=== PATIENT | female | born 2000 | race African-American/Black ===

== ENCOUNTER 2020-03-23 17:22 | Emergency (ER) | payer OTHER ==
[2020-03-23 17:40] VITALS: TEMP 98.6; BMI 25.0
[2020-03-23 20:49] LABS: BASO % 0.4 % (0-2.0); EOS % 0.7 % (0-4.5); HEMATOCRIT 36.4 % (32.4-45.2); HEMOGLOBIN 12.4 GM/dL (10.7-15.3); LYMPH % 39.3 % (8-40); MCH 31.6 pg (25.7-33.7); MCHC 34.2 g/dl (32.0-36.0); MEAN CELL VOLUME 92.3 fl (80-96); MEAN PLT VOLUME 9.4 fl (7.5-11.1); MONO % 7.2 % (3.8-10.2); NEUT % 52.4 % (42.8-82.8); PLATELET COUNT 209 K/MM3 (134-434); RBC 3.94 M/mm3 (3.60-5.2); RDW 12.7 % (11.6-15.6); WHITE BLOOD COUNT 5.5 K/mm3 (4.0-10.0)
[2020-03-23 21:09] LABS: POTASSIUM 3.7 mmol/L (3.5-5.1)
[2020-03-23 21:11] LABS: CALCIUM 8.6 mg/dL (8.5-10.1)
[2020-03-23 21:12] LABS: ALBUMIN 3.9 g/dl (3.4-5.0); BLOOD UREA NITROGEN 11.6 mg/dL (7-18)
[2020-03-23 21:15] LABS: CREATININE 0.5 mg/dL (0.55-1.3)
[2020-03-23 21:16] LABS: BILIRUBIN,TOTAL 0.6 mg/dL (0.2-1); TOT PROT 7.2 g/dl (6.4-8.2)
[2020-03-23 22:08] LABS: HIV INTERPRETATION NEGATIVE (NEGATIVE)
[2020-03-23 22:12] LABS: EPI CELLS 8 /uL (0-25.1); HYALINE CASTS 13 /uL (0-3.1); URINE APPEARANCE CLEAR; URINE BACTERIA >9,000 /uL (0-1359); URINE BILIRUBIN NEGATIVE (NEGATIVE); URINE COLOR YELLOW; URINE GLUCOSE (UA) NEGATIVE (NEGATIVE); URINE KETONE TRACE (NEGATIVE); URINE LEUK ESTERASE 1+ (NEGATIVE); URINE NITRITE NEGATIVE (NEGATIVE); URINE PROTEIN NEGATIVE (NEGATIVE); URINE RBC 3 /uL (0-23.9); URINE WBC 151 /uL (0-25.8)
[2020-03-23] MEDS ORDERED: CEPHALEXIN MONOHYDRATE 500 MG CAPSULE (UD) PO ONE (22:21)
[2020-03-23] MEDS ORDERED: CEPHALEXIN MONOHYDRATE 500 MG CAPSULE (UD) ONE (22:34)
[2020-03-23 22:47] VITALS: BP 122/72; PULSE 79
[2020-03-26 07:37] LABS: SYPHILIS W/ RPR CONF NON-REACTIVE (NONREACTIVE)
== END 2020-03-23 22:48 | disposition home or self-care (01) ==
LOC: JER 17:22
DX: N30.00 Acute cystitis without hematuria (principal); Z32.01 Encounter for pregnancy test, result positive
CPT/HCPCS: 36415; 76817-TC; 80053; 81003; 83690; 84702; 85025; 86780; 87086; 87186; 87389; 87491; 87591; 87661; 99283-25

== ENCOUNTER 2020-04-07 06:08 | Emergency (ER) | payer OTHER ==
[2020-04-07 06:25] VITALS: TEMP 98.7; BMI 26.5
[2020-04-07] MEDS ORDERED: ONDANSETRON 4 MG/2 ML VIAL IVPUSH ONE (07:30)
[2020-04-07] MEDS ORDERED: SODIUM CHLORIDE 0.9% 500 ML INFUS.BAG IV ONE (07:30)
[2020-04-07 07:35] LABS: BASO % 0.4 % (0-2.0); EOS % 0.4 % (0-4.5); HEMATOCRIT 37.7 % (32.4-45.2); HEMOGLOBIN 12.8 GM/dL (10.7-15.3); LYMPH % 24.4 % (8-40); MCH 31.4 pg (25.7-33.7); MEAN CELL VOLUME 92.4 fl (80-96); MEAN PLT VOLUME 9.2 fl (7.5-11.1); MONO % 7.2 % (3.8-10.2); NEUT % 67.6 % (42.8-82.8); PLATELET COUNT 206 K/MM3 (134-434); RBC 4.08 M/mm3 (3.60-5.2); RDW 12.7 % (11.6-15.6); WHITE BLOOD COUNT 7.1 K/mm3 (4.0-10.0)
[2020-04-07] MEDS ORDERED: ONDANSETRON 4 MG/2 ML VIAL ONE (07:36)
[2020-04-07 07:48] LABS: POTASSIUM 4.2 mmol/L (3.5-5.1)
[2020-04-07 07:52] LABS: BLOOD UREA NITROGEN 8.7 mg/dL (7-18); CALCIUM 8.8 mg/dL (8.5-10.1)
[2020-04-07 07:53] LABS: ALBUMIN 3.7 g/dl (3.4-5.0)
[2020-04-07] MEDS ORDERED: SODIUM CHLORIDE 1,000 ML IV STA (07:53)
[2020-04-07 07:56] LABS: CREATININE 0.5 mg/dL (0.55-1.3)
[2020-04-07 07:57] LABS: BILIRUBIN,TOTAL 1.3 mg/dL (0.2-1)
[2020-04-07 07:58] LABS: TOT PROT 6.8 g/dl (6.4-8.2)
[2020-04-07 08:28] LABS: PH,URINE 8.5 (5.0-8.0); URINE APPEARANCE CLOUDY; URINE BILIRUBIN NEGATIVE (NEGATIVE); URINE COLOR YELLOW; URINE GLUCOSE (UA) NEGATIVE (NEGATIVE); URINE KETONE NEGATIVE (NEGATIVE); URINE LEUK ESTERASE NEGATIVE (NEGATIVE); URINE NITRITE NEGATIVE (NEGATIVE); URINE PROTEIN NEGATIVE (NEGATIVE)
[2020-04-07 10:24] VITALS: BP 108/60; PULSE 79
== END 2020-04-07 10:24 | disposition home or self-care (01) ==
LOC: JER 06:08
PROC: 3E033GC Introduction of Other Therapeutic Substance into Peripheral Vein, Percutaneous Approach (ICD-10-PCS; principal; 2020-04-07)
PROC: 3E0337Z Introduction of Electrolytic and Water Balance Substance into Peripheral Vein, Percutaneous Approach (ICD-10-PCS; 2020-04-07)
DX: O21.1 Hyperemesis gravidarum with metabolic disturbance (principal); Z3A.01 Less than 8 weeks gestation of pregnancy
CPT/HCPCS: 36415; 76817-TC; 80053; 81003; 84702; 85025; 87086; 99284-25

== ENCOUNTER 2020-05-02 11:30 | Emergency (ER) | payer OTHER ==
[2020-05-02 11:51] VITALS: BP 101/54; PULSE 92; TEMP 97.6; BMI 23.4
[2020-05-02 12:52] LABS: BASO % 0.4 % (0-2.0); EOS % 0.8 % (0-4.5); HEMATOCRIT 36.8 % (32.4-45.2); HEMOGLOBIN 12.5 GM/dL (10.7-15.3); LYMPH % 29.4 % (8-40); MCH 31.8 pg (25.7-33.7); MCHC 33.9 g/dl (32.0-36.0); MEAN CELL VOLUME 93.8 fl (80-96); MEAN PLT VOLUME 8.8 fl (7.5-11.1); MONO % 7.6 % (3.8-10.2); NEUT % 61.8 % (42.8-82.8); PLATELET COUNT 205 K/MM3 (134-434); RBC 3.93 M/mm3 (3.60-5.2); RDW 13.2 % (11.6-15.6); WHITE BLOOD COUNT 5.1 K/mm3 (4.0-10.0)
[2020-05-02 13:07] LABS: EPI CELLS 26 /uL (0-25.1); HYALINE CASTS 0 /uL (0-3.1); PH,URINE 7.5 (5.0-8.0); URINE APPEARANCE TURBID; URINE BACTERIA 632 /uL (0-1359); URINE BILIRUBIN NEGATIVE (NEGATIVE); URINE COLOR YELLOW; URINE GLUCOSE (UA) NEGATIVE (NEGATIVE); URINE KETONE NEGATIVE (NEGATIVE); URINE LEUK ESTERASE NEGATIVE (NEGATIVE); URINE NITRITE NEGATIVE (NEGATIVE); URINE PROTEIN NEGATIVE (NEGATIVE); URINE RBC 3 /uL (0-23.9); URINE WBC 2 /uL (0-25.8)
[2020-05-02 13:31] LABS: POTASSIUM 4.3 mmol/L (3.5-5.1)
[2020-05-02 13:33] LABS: ALBUMIN 3.7 g/dl (3.4-5.0); BLOOD UREA NITROGEN 9.8 mg/dL (7-18); CALCIUM 9.2 mg/dL (8.5-10.1)
[2020-05-02 13:36] LABS: CREATININE 0.5 mg/dL (0.55-1.3)
[2020-05-02 13:38] LABS: BILIRUBIN,TOTAL 0.3 mg/dL (0.2-1); TOT PROT 6.9 g/dl (6.4-8.2)
== END 2020-05-02 15:10 | disposition home or self-care (01) ==
LOC: JER 11:30
DX: O02.1 Missed abortion (principal); Z3A.09 9 weeks gestation of pregnancy
CPT/HCPCS: 36415; 76817-TC; 80053; 81003; 84702; 85025; 86850; 86900; 86901; 87086; 99284-25

== ENCOUNTER 2020-05-08 23:07 | Emergency (ER) | payer OTHER ==
[2020-05-08 23:20] VITALS: TEMP 98.3; BMI 23.8
[2020-05-08] MEDS ORDERED: ONDANSETRON 4 MG/2 ML VIAL IVPUSH ONE (23:51)
[2020-05-08] MEDS ORDERED: SODIUM CHLORIDE 0.9% 500 ML INFUS.BAG IV ONE (23:51)
[2020-05-09] MEDS ORDERED: ONDANSETRON *ODT* 4 MG TABLET ONE (00:16)
[2020-05-09] MEDS ORDERED: ONDANSETRON *ODT* 4 MG TABLET SL ONE (00:17)
[2020-05-09] MEDS ORDERED: KETOROLAC TROMETHAMINE 30 MG/1 ML VIAL ONE (00:17)
[2020-05-09] MEDS ORDERED: KETOROLAC TROMETHAMINE 30 MG/1 ML VIAL IM ONE (00:17)
[2020-05-09 01:27] LABS: POTASSIUM 3.8 mmol/L (3.5-5.1)
[2020-05-09 01:32] LABS: CREATININE 0.7 mg/dL (0.55-1.3)
[2020-05-09 04:44] LABS: HEMATOCRIT 33.6 % (32.4-45.2); HEMOGLOBIN 11.4 GM/dL (10.7-15.3); MCH 31.9 pg (25.7-33.7); MEAN CELL VOLUME 93.9 fl (80-96); MEAN PLT VOLUME 9.3 fl (7.5-11.1); PLATELET COUNT 202 K/MM3 (134-434); RBC 3.57 M/mm3 (3.60-5.2); RDW 13.1 % (11.6-15.6); WHITE BLOOD COUNT 16.3 K/mm3 (4.0-10.0)
[2020-05-09 05:15] VITALS: BP 100/57; PULSE 72
== END 2020-05-09 05:20 | disposition home or self-care (01) ==
LOC: JER 23:07
PROC: 3E033NZ Introduction of Analgesics, Hypnotics, Sedatives into Peripheral Vein, Percutaneous Approach (ICD-10-PCS; principal; 2020-05-08)
PROC: 3E0233Z Introduction of Anti-inflammatory into Muscle, Percutaneous Approach (ICD-10-PCS; 2020-05-09)
DX: O03.9 Complete or unspecified spontaneous abortion without complication (principal)
CPT/HCPCS: 36415; 76817-TC; 80048; 84702; 85027; 86850; 86900; 86901; 99285-25; Q0162

== ENCOUNTER 2020-10-07 14:09 | Emergency (ER) | payer OTHER ==
[2020-10-07 14:22] VITALS: BP 115/79; PULSE 117; TEMP 98.1; BMI 24.3
[2020-10-07] MEDS ORDERED: SODIUM CHLORIDE 1,000 ML IV STA (14:37)
[2020-10-07] MEDS ORDERED: FAMOTIDINE 20 MG/50 ML IVPB 20 MG/50 ML MG IVPB ONE ×2 (14:37→15:26)
[2020-10-07] MEDS ORDERED: ONDANSETRON 4 MG/2 ML VIAL IVPUSH ONE (14:40)
[2020-10-07] MEDS ORDERED: ONDANSETRON 4 MG/2 ML VIAL ONE (15:26)
[2020-10-07 16:11] LABS: BASO % 0.3 % (0-2.0); EOS % 0.4 % (0-4.5); HEMATOCRIT 35.5 % (32.4-45.2); HEMOGLOBIN 12.4 GM/dL (10.7-15.3); LYMPH % 20.8 % (8-40); MEAN CELL VOLUME 91.3 fl (80-96); MEAN PLT VOLUME 8.6 fl (7.5-11.1); MONO % 6.4 % (3.8-10.2); NEUT % 72.1 % (42.8-82.8); PLATELET COUNT 185 10^3/uL (134-434); RBC 3.89 M/mm3 (3.60-5.2); RDW 13.6 % (11.6-15.6); WHITE BLOOD COUNT 6.4 K/mm3 (4.0-10.0)
[2020-10-07 16:20] LABS: PH,URINE 8.5 (5.0-8.0); URINE APPEARANCE TURBID; URINE BILIRUBIN NEGATIVE (NEGATIVE); URINE COLOR YELLOW; URINE GLUCOSE (UA) NEGATIVE (NEGATIVE); URINE KETONE TRACE (NEGATIVE); URINE LEUK ESTERASE NEGATIVE (NEGATIVE); URINE NITRITE NEGATIVE (NEGATIVE); URINE PROTEIN TRACE (NEGATIVE)
[2020-10-07 16:32] LABS: ALBUMIN 3.4 g/dl (3.4-5.0); BLOOD UREA NITROGEN 7.4 mg/dL (7-18); CALCIUM 8.9 mg/dL (8.5-10.1)
[2020-10-07 16:36] LABS: CREATININE 0.5 mg/dL (0.55-1.3)
[2020-10-07 16:37] LABS: TOT PROT 6.7 g/dl (6.4-8.2)
[2020-10-07 16:50] LABS: BILIRUBIN,TOTAL 0.5 mg/dL (0.2-1)
== END 2020-10-07 16:59 | disposition home or self-care (01) ==
LOC: JER 14:09
PROC: 3E033NZ Introduction of Analgesics, Hypnotics, Sedatives into Peripheral Vein, Percutaneous Approach (ICD-10-PCS; principal; 2020-10-07)
PROC: 3E0337Z Introduction of Electrolytic and Water Balance Substance into Peripheral Vein, Percutaneous Approach (ICD-10-PCS; 2020-10-07)
PROC: 3E033GC Introduction of Other Therapeutic Substance into Peripheral Vein, Percutaneous Approach (ICD-10-PCS; 2020-10-07)
DX: R11.2 Nausea with vomiting, unspecified (principal); R10.9 Unspecified abdominal pain
CPT/HCPCS: 36415; 76801-TC; 80053; 81003; 85025; 87086; 99284-25

== ENCOUNTER 2020-10-21 02:56 | Emergency (ER) | payer OTHER ==
[2020-10-21 03:10] VITALS: BP 113/70; PULSE 100; TEMP 98.3; BMI 23.5
[2020-10-21] MEDS ORDERED: FAMOTIDINE 20 MG/50 ML IVPB 20 MG/50 ML MG IVPB ONE ×2 (03:29→03:41)
[2020-10-21] MEDS ORDERED: ONDANSETRON 4 MG/2 ML VIAL IVPUSH ONE (03:29)
[2020-10-21] MEDS ORDERED: SODIUM CHLORIDE 0.9% 500 ML INFUS.BAG IV ONE (03:29)
[2020-10-21] MEDS ORDERED: ONDANSETRON 4 MG/2 ML VIAL ONE (03:41)
[2020-10-21 03:46] LABS: BASO % 0.5 % (0-2.0); EOS % 0.2 % (0-4.5); HEMATOCRIT 32.3 % (32.4-45.2); HEMOGLOBIN 11.5 GM/dL (10.7-15.3); LYMPH % 19.2 % (8-40); MCH 32.5 pg (25.7-33.7); MCHC 35.6 g/dl (32.0-36.0); MEAN CELL VOLUME 91.3 fl (80-96); MEAN PLT VOLUME 8.3 fl (7.5-11.1); MONO % 6.3 % (3.8-10.2); NEUT % 73.8 % (42.8-82.8); PLATELET COUNT 188 10^3/uL (134-434); RBC 3.54 M/mm3 (3.60-5.2); RDW 13.4 % (11.6-15.6); WHITE BLOOD COUNT 9.9 K/mm3 (4.0-10.0)
[2020-10-21] MEDS ORDERED: ACETAMINOPHEN 1000 MG/100 ML VIAL (NON FORMULARY) IVPB ONE (03:51)
[2020-10-21 03:59] LABS: EPI CELLS 28 /uL (0-25.1); HYALINE CASTS 2 /uL (0-3.1); PH,URINE 5.5 (5.0-8.0); URINE APPEARANCE CLEAR; URINE BACTERIA 1527 /uL (0-1359); URINE BILIRUBIN NEGATIVE (NEGATIVE); URINE COLOR YELLOW; URINE GLUCOSE (UA) NEGATIVE (NEGATIVE); URINE KETONE 4+ (NEGATIVE); URINE LEUK ESTERASE TRACE (NEGATIVE); URINE NITRITE NEGATIVE (NEGATIVE); URINE PROTEIN NEGATIVE (NEGATIVE); URINE RBC 12 /uL (0-23.9); URINE WBC 30 /uL (0-25.8)
[2020-10-21] MEDS ORDERED: ACETAMINOPHEN INJECTION 100 ML IVPB ONE (04:04)
[2020-10-21 04:08] LABS: CALCIUM 8.5 mg/dL (8.5-10.1)
[2020-10-21 04:09] LABS: ALBUMIN 3.3 g/dl (3.4-5.0); BLOOD UREA NITROGEN 9.2 mg/dL (7-18)
[2020-10-21 04:12] LABS: CREATININE 0.4 mg/dL (0.55-1.3)
[2020-10-21 04:13] LABS: BILIRUBIN,TOTAL 0.3 mg/dL (0.2-1)
[2020-10-21 04:14] LABS: TOT PROT 6.6 g/dl (6.4-8.2)
[2020-10-21] MEDS ORDERED: DEXTROSE 5%-NORMAL SALINE 1,000 ML IV ONE (04:22)
[2020-10-21] MEDS ORDERED: CEPHALEXIN MONOHYDRATE 500 MG CAPSULE (UD) PO ONE (04:23)
[2020-10-21] MEDS ORDERED: CEPHALEXIN MONOHYDRATE 500 MG CAPSULE (UD) ONE (04:40)
== END 2020-10-21 11:00 | disposition home or self-care (01) ==
LOC: JER 02:56
PROC: 3E033NZ Introduction of Analgesics, Hypnotics, Sedatives into Peripheral Vein, Percutaneous Approach (ICD-10-PCS; principal; 2020-10-21)
PROC: 3E033GC Introduction of Other Therapeutic Substance into Peripheral Vein, Percutaneous Approach (ICD-10-PCS; 2020-10-21)
PROC: 3E033GC Introduction of Other Therapeutic Substance into Peripheral Vein, Percutaneous Approach (ICD-10-PCS; 2020-10-21)
PROC: 3E0337Z Introduction of Electrolytic and Water Balance Substance into Peripheral Vein, Percutaneous Approach (ICD-10-PCS; 2020-10-21)
DX: O21.0 Mild hyperemesis gravidarum (principal); Z3A.15 15 weeks gestation of pregnancy
CPT/HCPCS: 36415; 76816-TC; 80053; 81003; 85025; 87086; 99285-25; J0131

== ENCOUNTER 2021-02-13 02:05 | Emergency (ER) | payer OTHER ==
[2021-02-13 02:08] VITALS: BP 99/54; PULSE 112; TEMP 99.7; BMI 23.5
[2021-02-13] MEDS ORDERED: ACETAMINOPHEN 325 MG TABLET (FP) PO ONE (03:29)
[2021-02-13] MEDS ORDERED: ACETAMINOPHEN 325 MG TABLET (FP) ONE (03:38)
[2021-02-13] MEDS ORDERED: ONDANSETRON *ODT* 4 MG TABLET SL ONE (03:38)
[2021-02-13] MEDS ORDERED: ONDANSETRON *ODT* 4 MG TABLET ONE (03:39)
== END 2021-02-13 04:26 | disposition home or self-care (01) ==
LOC: JER 02:05
DX: U07.1 COVID-19 (principal); M25.521 Pain in right elbow; Z3A.30 30 weeks gestation of pregnancy
CPT/HCPCS: 99283-25; Q0162

== ENCOUNTER 2021-12-07 19:34 | Emergency (ER) | payer OTHER ==
[2021-12-07 20:07] VITALS: BP 130/85; PULSE 61; RESP 17; TEMP 98.6; BMI 22.7
== END 2021-12-07 22:23 | disposition home or self-care (01) ==
LOC: JER 19:34 → JERFT 19:34
DX: U07.1 COVID-19 (principal)
CPT/HCPCS: 99282-25